=== PATIENT | female | born 1940 | race Two or more races ===

== ENCOUNTER 2017-10-15 13:57 | Outpatient (RCR) | payer MEDICARE, OTHER ==
[2017-10-15 11:38] LABS: PLATELET COUNT, AUTOMATED 158 K/uL (150-450)
[~2017-10-15 13:57] MED LIST: ASPI-715 PO; CALC1TAB32 PO; CHOL200022 PO; DICL100G39 TOP; EST42T PV; ESTR42.5 VG; GLUC500T12 PO; HYDR-2966 PO; METF-411 PO; MULT-820 PO; RIS35 PO
[2017-10-16] MEDS ORDERED: NS 0.9% 150 ML BAG 150 ML ONE (08:58)
[2017-10-16] MEDS ORDERED: IOPAMIDOL 76% 75 ML INFUS BTL 75 ML ONE (08:58)
--- NOTE | 2017-10-16 10:09 | RADIOLOGY IMAGING REPORT ---
FACILITY: [facility] PATIENT NAME: Ilda Rojo : 1940 MR: [id number] V: [id number] EXAM DATE: ORDERING PHYSICIAN: CHAS AMAYA TECHNOLOGIST: Location: [facility] [place] Patient: Ilda Rojo : 1940 Visit/Account:[id number] Date of Sevice: 10/16/2017 CTA ABDOMEN PELVIS W WO CONT Provided history: abdominal bruit, elevated blodd pressure Additional pertinent history: none TECHNIQUE: Abdominal aorta protocol: Preliminary non-IV enhanced series obtained through the abdomen and pelvis. Bolus intravenous contrast enhanced thin section spiral scan was obtained during maximal aortic arter ial opacification through the abdomen and pelvis. Reconstruction of the source data set includes muli tplanar 2D in the sagital and coronal planes, and 3D coronal thin slab MIP series. Able Bodied Tankerman shawn ges have been stored on PACS. Contrast: 75 ml Isovue 370 One of the following dose optimization techniques was utilized in the performance of this exam: Autom ated exposure control; adjustment of the mA and/or kV according to the patient's size; or use of an i terative reconstruction technique. Specific details can be referenced in the facility's radiology C T exam operational policy. COMPARISON STUDIES: CT abdomen pelvis 09/05/07 FINDINGS: Angiographic findings: Abdominal aorta: Mild diffuse wall thickening and minor calcified plaque. No stenosis, dissection or aneurysm. Branch vessels: There are bilateral single main renal arteries without ostial stenosis. The right main renal artery study demonstrates a typical appearance for a string of beads FMD with se rial stenoses and aneurysms. At the bifurcation also, there is a focal aneurysm measuring [address] diameter. The segmental branches demonstrate no significant disease. On the left, the main renal arterial segment is relatively normal although there is subtle surface be ading. 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 There are no similar findings of the SMA or celiac. There is only minor narrowing of the ostium of th e celiac, not significant. Iliacs: Mild nonstenotic calcified plaque. Focal ulceration in the inferior wall of the left common iliac artery without contain thrombus. Tiny dissection flap left internal iliac best seen coronal shawn ge 52. External iliacs negative. Additional non-angiographic findings: Lower chest: Negative Liver/biliary: Negative Pancreas: Negative Spleen: Negative Adrenal glands: Negative Kidneys / ureters / bladder / genitourinary / retroperitoneum: Negative Bowel / peritoneum / mesenteries: Negative Other Vessels: negative Body wall: negative Lymph nodes: negative Bones: negative IMPRESSION: 1. 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 The degree of stenosis is of ten underestimated by CT in this condition. This could be responsible for hypertension. 2. There is also involvement of the first segmental branch of the left main renal artery described ab ove. 3. No significant mesenteric disease. 4. Mild atherosclerosis of the iliac arteries. Small ulceration inferior wall left common iliac arter y and minimal contained dissection of the left internal iliac. Report Dictated By: Shilo Perez MD at 10/16/2017 9:45 AM Report E-Signed By: Shilo Peerz MD at 10/16/2017 10:05 AM WSN:[id number]
[2017-11-07] MEDS ORDERED: HYDR12.561 PO (10:33)
== END 2017-10-16 18:00 | disposition home or self-care (01) ==
LOC: EDSTATUS 13:57 → CT 13:57
PROVIDERS: ATTEND Internal Medicine
DX: R09.89 Other specified symptoms and signs involving the circulatory and respiratory systems (principal); R03.0 Elevated blood-pressure reading, without diagnosis of hypertension; I70.8 Atherosclerosis of other arteries
CPT/HCPCS: 36415; 74174; 84443; 85025; Q9967; 82040; 82247; 82310; 82374; 82435; 82565; 82947; 84075; 84132; 84155; 84295; 84450; 84460; 84520

== ENCOUNTER 2018-04-25 10:00 | Outpatient (RCR) | payer MEDICARE, OTHER ==
--- NOTE | 2018-01-29 13:11 | PT INITIAL EVALUATION ---
MEDICAL DIAGNOSIS: M25.561 R knee pain TREATMENT DIAGNOSIS: Same DATE OF ONSET: 11/24/17 SUBJECTIVE: Ilda Rojo presents to PT for R knee pain that developed after repetitive stair use in November when she was moving furniture from floor to basement. She had a R knee scope over 10 years ago for cartilage wear. Knee FOTO 14% impairment. Pain location is R anterior and lateral knee and described as ache. Pain scale is 2 on a ten point pain scale. Pain is worse with stair use and better with aspirin. REHAB PROBLEM LIST: Increased Pain Decreased ROM Decreased Strength Decreased Gait PREVIOUS MEDICAL HISTORY: Renal HTN, glucose intolerance, osteoporosis, in the last two years B hands and feet neuropathy. 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 OBJECTIVE: Posture: Mild calcaneal eversion, even iliac crests. ROM: R knee AROM 5 - WNL. Ankles 10 deg. DF in rearfoot neutral. R rear foot 4 deg. eversion, L 0 deg., and B fore- feet neutral, NWB. Strength: R quad 4-/5, L 5-/5, B hamstrings 5/5. Palpation: Minimal patellar crepitus with AROM R knee extension, more so in the L knee. Special Tests: Flexibility: hamstring 60 deg. R, 70 deg. L, R quad 100 Deg., L 115 degrees, tight psoas B, but negative David test. Mobility: Tight R knee joints. Gait: Pronation beyond midstance. ASSESSMENT: Ilda Rojo presents with weaker R quad reducing her knee ground reaction force with stair use, tightness and mild pronation. She is started with quad strengthening exercise today. Short Term Goals 4 weeks: Ilda uses stairs with R knee pain 07/06. 6 weeks: Ilda uses stairs without R knee pain, R quad 4+ to 5-/5 for improved R knee ground reaction force. Patient's Goals Get rid of knee pain. PLAN: Patient to be seen for Manual Therapy, Strengthening/condition, Ice/Heat, Range of Motion, Stretching, Neuromuscular Re-ed, Electrical Stim, Gait Trg/Balance Trg, Home Exercise Program 2x/Week for 6 Weeks Thank you for this referral. If you have any questions, comments, or concerns about this report or plan, please contact me at . MTDD
--- NOTE | 2018-03-10 13:53 | PT PLAN OF CARE ---
Physician: Dr. Gary Zhang Patient is being seen: 2x/week Therapist: Praveena Narvaez, PT Treatment Diagnosis: Same Date of Onset: 11/24/17 Date of Initial Evaluation: 01/29/18 Date patient was last seen: 03/10/18 Number of treatments: 10 Number of cancellations/No shows: 0 INTERVENTIONS: Manual Therapy Strengthening/condition Stretching Home Exercise Program GOALS: 4 weeks: Ilda uses stairs with R knee pain 2/10. (progressing) 6 weeks: Ilda uses stairs without R knee pain (not met), R quad 4+ (met) to 5- /5 (not met) for improved R knee ground reaction force. PATIENT'S GOAL: Get rid of knee pain (progressing). Patient Compliance: Excellent Prognosis: Excellent Reasons for continuing therapy: S: Ilda relates her R knee hurts less descending stairs, but now the cold weather is making it ache more. Knee FOTO 28%.O: ROM: R knee AROM 5 - WNL. Strength: R quad 4+/5 with strong VMO contraction, L 5/5. Palpation: Improving patellofemoral medial glide to 50 deg. flexion while femorotibial joint remains hypomobile in extension (OA). R lateral hamstrings and IT band are sore with palpation. Special Tests: Flexibility: hamstring 80 deg. B, R quad 115 degrees. Psoas flexibility improved. Gait: Even stride, fast cadance. A/P: Ilda Rojo is improving flexibility, strength and could benefit from continued PT to work to goals set. If you agree, we'll continue PT 2x/week another 3 weeks. Thank you. MARCO ANTONIO
--- NOTE | 2018-03-28 12:03 | PT PLAN OF CARE ---
Physician: Dr. Gary Zhang Patient is being seen: 2x/week Therapist: Praveena Narvaez, PT Medical Diagnosis: M25.561 R knee pain Treatment Diagnosis: Same Date of Onset: 11/24/17 Date of Initial Evaluation: 01/29/18 Date patient was last seen: 03/28/18 Number of treatments: 15 Number of cancellations/No shows: 0 INTERVENTIONS: Manual Therapy Strengthening/condition Range of Motion Stretching Home Exercise Program GOALS: 4 weeks: Ilda uses stairs with R knee pain 2/10. (progressing) 6 weeks: Ilda uses stairs without R knee pain (not met), R quad 4+ (met) to 5- /5 (met) for improved R knee ground reaction force. PATIENT'S GOAL: Get rid of knee pain (progressing). 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 O: ROM: R knee AROM 5 - WNL. Strength: R quad 5-/5, L 5/5. Palpation: Minimal patellar crepitus with AROM R knee extension, more so in the L knee. Special Tests: Flexibility: hamstring 80 degrees. Mobility: R patellofemoral joint medial glide improved to 60 degrees now. A/P: Ilda Rojo is improving strength, functional movements without pain. As she still has pain descending stairs, if you agree, we'll continue 2x/week for another month to goals set. Thank you. MARCO ANTONIO
[~2018-04-25 10:00] MED LIST changes: +CHOL200018 PO; -CHOL200022 PO; +HYDR12.561 PO; -METF-411 PO; +METF-450 PO
--- NOTE | 2018-04-25 13:05 | PT PLAN OF CARE ---
Physician: Dr. Gary Zhang Patient is being seen: 2x/week Therapist: Praveena Narvaez PT Medical Diagnosis: M25.561 R knee pain Treatment Diagnosis: Same Date of Onset: 11/24/17 Date of Initial Evaluation: 01/29/18 Date patient was last seen: 04/25/18 Number of treatments: 23 Number of cancellations/No shows: 0 INTERVENTIONS: Manual Therapy Strengthening/condition Range of Motion Stretching Home Exercise Program GOALS: 4 weeks: Ilda uses stairs with R knee pain 2/10. (met) 6 weeks: Ilda uses stairs without R knee pain (partially met), R quad 4+ (met) to 5-/5 (met) for improved R knee ground reaction force. PATIENT'S GOAL: Get rid of knee pain (partially met). Patient Compliance: Excellent Prognosis: Excellent Reasons for discontinuing therapy: S: Ilda relates her R knee is pain free sometimes, with cold weather systems, aches 2-4/10. Knee FOTO 20%. O: ROM: R knee AROM 0 - WNL. Strength: Quads, hamstrings 5/5. Gait: Fast cadance , R knee flexed 5 degrees. Special Tests: Flexibility: hamstring 80 deg., R quad 120 degrees. Mobility: Improved R knee joints mobility. A/P: Ilda Rojo has improved strength, flexibility, stair use tolerance. I'll DC PT to [facility], and Ilda will start high intensity training class here next week. Thank you. MARCO ANTONIO
== END 2018-04-29 ==
LOC: PT 10:00
PROVIDERS: ATTEND Internal Medicine
DX: M25.561 Pain in right knee (principal); M81.0 Age-related osteoporosis without current pathological fracture; G62.9 Polyneuropathy, unspecified
CPT/HCPCS: 97162

== ENCOUNTER → 2018-11-14 | Outpatient (CLI) | payer MEDICARE, OTHER ==
[~2018-11-14] MED LIST changes: +BARIUM SULFATE 176 GM BTL PO ONE; +BARIUM SULFATE 340 GM POWD ONE; +PANT20TA27 PO
--- NOTE | 2018-11-14 10:10 | RADIOLOGY IMAGING REPORT ---
FACILITY: [facility] - [place] PATIENT NAME: Ilda Rojo : 1940 MR: [id number] V: [id number] EXAM DATE: ORDERING PHYSICIAN: IRMA MCKEON TECHNOLOGIST: Location: [facility] Patient: Ilda Rojo : 1940 Visit/Account:[id number] Date of Sevice: 11/14/2018 XR UPPER GI SERIES with KUB HISTORY: Difficulty swallowing pills. Reflux. COMPARISON: None TECHNIQUE: Fizzies followed by multiple consistencies of barium were administered orally with multipl e spot films obtained. A 13 mm barium tablet was also administered FINDINGS: Preliminary supine AP film of the abdomen reveals a nonobstructive bowel gas pattern. No abnormal ca lcifications. Esophagus: Prominence of the cricopharyngeus noted. The esophagus is normal in caliber and contour w ith no persistent intrinsic or extrinsic filling defects. There are no persistent areas of narrowing. Hiatal hernia: There is no significant hiatal hernia. Reflux: Moderate episodes of gastroesophageal reflux to the clavicular heads. Stomach: The stomach distends normally with contrast with no contour abnormalities. There is no evide nce of gastric outlet obstruction. Duodenum: The duodenal bulb distends normally with contrast with a normal mucosal pattern. Small duo denal diverticulum noted. Other findings: A barium tablet passed easily without holdup. Dose area product of 379 uGym2. IMPRESSION: 1. Moderate gastroesophageal reflux. 2. A barium tablet passed easily without holdup. 3. Small duodenal diverticulum. Report Dictated By: Waldo Lawson MD at 11/14/2018 10:02 AM Report E-Signed By: Waldo Lawson MD at 11/14/2018 10:05 AM WSN:[id number]
== END ==
LOC: RAD 01:40
PROVIDERS: ATTEND Family Medicine
DX: K21.9 Gastro-esophageal reflux disease without esophagitis (principal); K31.4 Gastric diverticulum
CPT/HCPCS: 74240